=== PATIENT | male | born 1975 ===

== ENCOUNTER → 2024-12-23 | Outpatient (CLI) | payer OTHER ==
[~2024-12-23] MED LIST: ACET325; CIPR500 PO; HYDACE5 PO; IBUP200; MELA3; RXOXYACE PO; SERT100 PO; SILSUL1TC TOP; TRAM50; Temazepam15 MG PO
== END | disposition home or self-care (01) ==
LOC: LAB SHORT 12:35 → LAB 12:35
DX: K11.8 Other diseases of salivary glands (principal)
CPT/HCPCS: 88173

== ENCOUNTER 2025-01-14 10:07 | Day surgery (SDC) | payer OTHER ==
[~2025-01-14] VITALS: Ht 177.8 cm; Wt 95.9 kg
[2025-01-14] MEDS ORDERED: Lactated Ringer's 1,000 ML IV ONE ×2 (10:19)
[2025-01-14] MEDS ORDERED: QUETIAPINE FUMA5012 PO (10:23)
[2025-01-14] MEDS ORDERED: OMEP20ER PO (10:24)
[2025-01-14] MEDS ORDERED: EPINEPhrine HCl 1 MG/ML 1ML Amp ONE (10:39)
[2025-01-14] MEDS ORDERED: Lidocaine HCl 4% 5 ML SDA ONE (10:47)
[2025-01-14] MEDS ORDERED: propofoL 20 ML IV ONE ×2 (10:50→11:02)
[2025-01-14] MEDS ORDERED: FentaNYL Citrate 50 MCG/ML 2 ML Injection ONE ×2 (10:50→13:27)
[2025-01-14] MEDS ORDERED: Artificial Tear Opth Oint 3.5 GM ONE (11:02)
[2025-01-14] MEDS ORDERED: Rocuronium Bromide 10 MG/ML 5ML Injection IV ONE (11:03)
[2025-01-14] MEDS ORDERED: SuccINYLCHOLINE Chloride 100 MG/5 ML 5MLSYR ONE (11:03)
[2025-01-14] MEDS ORDERED: Ondansetron HCl 2 MG / ML 2ML Vial ONE (11:03)
[2025-01-14] MEDS ORDERED: Dexamethasone Sod Phos 10 MG/ML 1ML VIAL ONE (11:03)
--- NOTE | 2025-01-14 11:34 | NUR ---
01/14/25 Tony4 Nadia Lamas 0.1ML OF EPI DILUTED WITH 20ML OF NORMAL SALINE TO MAKE EPI 1:200,000 FOR INJECTION AT [facility].
[2025-01-14] MEDS ORDERED: Sodium Chloride 0.9% Inj 10 ML Vial INJ ONE (11:36)
--- NOTE | 2025-01-14 13:38 | NUR ---
01/14/25 [id number] Mao Pierce FENTANYL 25MCG IV GIVEN AT 1337 FOR RIGHT SIDED NECK PAIN.
[2025-01-14 13:48] VITALS: BP 145/101
[2025-01-14] MEDS ORDERED: OxyCODONE HCL 5 MG TAB ONE (14:01)
== END 2025-01-14 14:20 | disposition home or self-care (01) ==
LOC: ORSCSDS 10:07
PROVIDERS: Otolaryngology
PROC: 0CB80ZZ Excision of Right Parotid Gland, Open Approach (ICD-10-PCS; principal; 2025-01-14 11:30)
DX: D11.0 Benign neoplasm of parotid gland (principal); F17.210 Nicotine dependence, cigarettes, uncomplicated; K21.9 Gastro-esophageal reflux disease without esophagitis; F32.A Depression, unspecified; Z79.899 Other long term (current) drug therapy
CPT/HCPCS: 88307; A9270; J0171; J0330; J1100; J2003; J2405; J2704; J3010